=== PATIENT | female | born 1990 | race Caucasian/White ===

== ENCOUNTER 2018-02-07 11:00 | Emergency (ER) | payer SELFPAY ==
[~2018-02-07] VITALS: Ht 154.9 cm; Wt 74.4 kg
[2018-02-07 11:16] VITALS: Ht 154.9 cm; Wt 74.4 kg
[2018-02-07 13:57] VITALS: BP 109/63
== END 2018-02-07 13:57 | disposition home or self-care (01) ==
LOC: ED 11:00
DX: N75.1 Abscess of Bartholin's gland (principal)
CPT/HCPCS: J2001; J2270; J2405